=== PATIENT | female | born 1960 | race Caucasian/White ===

== ENCOUNTER 2022-04-19 18:20 | Emergency (ER) | payer OTHER ==
[2022-04-19 18:49] VITALS: BP 160/96; PULSE 95
== END 2022-04-19 19:00 | disposition home or self-care (01) ==
LOC: LB.ED 18:20
DX: S61.211A Laceration without foreign body of left index finger without damage to nail, initial encounter (principal); F17.210 Nicotine dependence, cigarettes, uncomplicated; Z88.2 Allergy status to sulfonamides; W26.0XXA Contact with knife, initial encounter
CPT/HCPCS: 12001; 99282